=== PATIENT | female | born 2000 | race Two or more races ===

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

== ENCOUNTER 2020-12-26 11:36 | Emergency (ER) | payer OTHER, MEDICAID ==
[2020-12-27 00:23] LABS: SARS-CoV-2 PCR by NAA Not Detected (NotDetected)
== END 2020-12-26 12:37 | disposition home or self-care (01) ==
LOC: ERS 11:36
DX: R05 Cough (principal); R06.7 Sneezing; I45.9 Conduction disorder, unspecified; M41.9 Scoliosis, unspecified; Z20.822 Contact with and (suspected) exposure to COVID-19
CPT/HCPCS: 99283; U0003; U0005